=== PATIENT | female | born 1995 | race Caucasian/White ===

== ENCOUNTER 2024-10-02 07:49 | Outpatient (CLI) | payer MEDICARE, MEDICAID, SELFPAY ==
--- NOTE | 2024-10-02 07:54 | FL_ITS ---
WS: [id number] FL barium swallow [id number] REASON FOR EXAM: DYSPHAGIA FLUOROSCOPY TIME: 2min [id number] # OF SPOT FILMS: 0 TECHNIQUE: Examination was limited due to the clinical condition of the patient. With the patient supine in the head and shoulder slightly elevated single swallows of barium were observed fluoroscopically and recorded with multiple rapid sequence spot films. FINDINGS: No aspiration was identified. There was a relatively normal peristalsis of the distal esophagus. There was a small sliding hiatal hernia with nonobstructing Schatzki ring. No significant reflux was identified. No extrinsic or intrinsic mass effect. No gastroesophageal stricture. FL/FL barium swallow [id number] IMPRESSION: Limited exam as above. No significant abnormality was demonstrated.
== END 2024-10-02 07:50 | disposition home or self-care (01) ==
LOC: RAD 07:51
PROVIDERS: Family Provider Pediatrics Adolescent Medicine; PCP Otolaryngology; Visit Provider Otolaryngology
DX: R13.19 Other dysphagia (principal); K44.9 Diaphragmatic hernia without obstruction or gangrene
CPT/HCPCS: 74220

== ENCOUNTER 2024-10-05 10:36 | Outpatient (CLI) | payer MEDICARE, MEDICAID, SELFPAY ==
--- NOTE | 2024-10-05 10:45 | FL_ITS ---
WS: [id number] Exam: FL barium swallow modifd [id number] Date/Time of Exam: 10/05/2024 10:57 AM Reason For Exam: Other dysphagia Fluoroscopy time: 5min [id number] minutes # of spot films: Modified barium swallow test was performed in conjunction with the speech therapy service. Moderate oral pharyngeal swallowing phase dysfunction noted particularly with the patient elevating the tongue to the hard palate to initiate swallowing. The patient tolerated all consistencies of barium mixture foodstuffs without aspiration or penetration. The patient could not swallow the barium tablet due to oral pharyngeal dysfunction. FL/FL barium swallow modifd [id number] IMPRESSION: 1. No penetration or aspiration was noted. 2. Significant oral pharyngeal dysfunction. See above discussion. The patient c ould not swallow the barium tablet. A separate report and recommendations will follow from the speech therapy servi ce.
== END 2024-10-05 10:37 | disposition home or self-care (01) ==
PROVIDERS: Family Provider Pediatrics Adolescent Medicine; PCP Otolaryngology; Visit Provider Otolaryngology
DX: R13.19 Other dysphagia (principal); R93.89 Abnormal findings on diagnostic imaging of other specified body structures
CPT/HCPCS: 74230; 92611